=== PATIENT | male | born 1970 | race American Indian/Alaskan Native ===

== ENCOUNTER 2017-08-16 12:34 | Emergency (ER) | payer MEDICARE, OTHER ==
[2017-08-16 12:58] VITALS: BP 139/93
[2017-08-16] MEDS ORDERED: TYLENOL #3 PO ONE (15:32)
[2017-08-16] MEDS ORDERED: MOTRIN PO ONE (15:32)
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
== END 2017-08-16 17:25 | disposition home or self-care (01) ==
LOC: ED 12:34
DX: M54.5 Low back pain (principal); M79.631 Pain in right forearm; M25.511 Pain in right shoulder; F17.200 Nicotine dependence, unspecified, uncomplicated; V09.9XXA Pedestrian injured in unspecified transport accident, initial encounter; Y93.89 Activity, other specified; Y92.89 Other specified places as the place of occurrence of the external cause; Y99.8 Other external cause status
CPT/HCPCS: 72100